=== PATIENT | female | born 1980 | race Caucasian/White ===

== ENCOUNTER 2021-06-07 18:08 | Emergency (ER) | payer SELFPAY ==
[~2021-06-07] VITALS: Ht 157.5 cm; Wt 76.2 kg
[2021-06-07 18:09] VITALS: BP 121/86
== END 2021-06-07 18:35 | disposition left against medical advice (07) ==
LOC: ER 18:10
DX: R10.9 Unspecified abdominal pain (principal); Z53.21 Procedure and treatment not carried out due to patient leaving prior to being seen by health care provider

== ENCOUNTER → 2022-11-28 | Emergency (ER) | payer MEDICAID | END | disposition left against medical advice (07) | LOC: ER 11:06 | DX: H93.90 Unspecified disorder of ear, unspecified ear (principal); Z53.21 Procedure and treatment not carried out due to patient leaving prior to being seen by health care provider ==